=== PATIENT | male | born 1980 | race Hispanic/Latino ===

== ENCOUNTER → 2024-09-19 | Day surgery (SDC) | payer OTHER ==
[~2024-09-19] MED LIST: AMLODIPINE-ATO1 EAC5; DEXAMETHASONE SOD PHOS INJ 4 MG/ML SDV ONE; FENTANYL CITRATE/PF 100MCG/2 ML INJ ONE; LIDOCAINE HCL 2% LOCAL INJ 5 ML SDV VIAL INJ ONE; MIDAZOLAM HCL 2 MG/2 ML VIAL ONE; ONDANSETRON HCL INJ 2MG/ML 2ML 2 MG/ML VIAL ONE; PROPOFOL IV EMULSION 10 MG/ML 20 ML VIAL ONE; ROCURONIUM BROMIDE 0 ML IV ONE
[2024-09-19] MEDS: LACTATED RINGER'S 1,000 ML ONE (08:31)
[2024-09-19 12:00] VITALS: TEMP 97.6
[2024-09-19] MEDS: FENTANYL CITRATE/PF 100MCG/2 ML INJ ONE (12:13)
[2024-09-19] MEDS: HYDRALAZINE HCL 20 MG/ML VIAL ONE (12:30)
[2024-09-19 12:50] VITALS: BP 132/90; PULSE 62; RESP 15; O2SAT 99
[2024-09-19] MEDS: ACETAMINOPHEN/CODEINE 300MG - 30MG TAB ONE (12:50)
== END | disposition home or self-care (01) ==
LOC: OR 08:17
PROVIDERS: ATTEND Specialist
DX: S83.281A Other tear of lateral meniscus, current injury, right knee, initial encounter (principal); S83.241A Other tear of medial meniscus, current injury, right knee, initial encounter; M17.11 Unilateral primary osteoarthritis, right knee; X50.0XXA Overexertion from strenuous movement or load, initial encounter; Y93.H9 Activity, other involving exterior property and land maintenance, building and construction; I10 Essential (primary) hypertension; Z79.899 Other long term (current) drug therapy
CPT/HCPCS: 93005; J0360; J0690; J1100; J2003; J2250; J2405